=== PATIENT | male | born 1955 | race Caucasian/White ===

== ENCOUNTER 2020-08-30 09:21 | Outpatient (CLI) | payer SELFPAY ==
--- NOTE | ~2020-08-30 | US_ITS ---
EXAMINATION: US abdomen limited DATE: 08/30/2020 09:37 INDICATION: Right upper quadrant abdominal pain. TECHNIQUE: Multiple grayscale and Doppler ultrasound images of the abdomen were obtained. COMPARISON: CT abdomen 02/12/2004 FINDINGS: Abdominal aorta is normal in caliber. The visualized portions of the head, body, and tail o f the pancreas are normal. The liver is normal without focal lesion. No liver surface nodularity. The re is normal flow in main portal vein. The gallbladder is normal in size and contains gallstones. No gallbladder wall thickening or sonographic Shipley sign. The common duct is normal and measures 6 mm. Right kidney is normal. IMPRESSION: 1. Cholelithiasis. No evidence of acute cholecystitis. Reviewed, dictated and finalized at location A.
== END 2020-08-30 09:22 ==
PROVIDERS: PCP Physician Assistant; Visit Provider Physician Assistant
DX: K80.20 Calculus of gallbladder without cholecystitis without obstruction (principal)
CPT/HCPCS: 76705